=== PATIENT | female | born 1980 | race Caucasian/White ===

== ENCOUNTER → 2017-01-26 | Outpatient (CLI) | payer OTHER ==
--- NOTE | 2017-01-26 10:16 | RADIOLOGY REPORT (SQ) ---
EXAM DESCRIPTION: U/S ABDOMEN COMPLETE W/O DOP COMPLETED DATE/TIME: 01/26/2017 9:38 am REASON FOR STUDY: UPPER ABDOMINAL PAIN R10.10 UPPER ABDOMINAL PAIN, UNSPECIFIED COMPARISON: None. TECHNIQUE: Dynamic and static grayscale images acquired of the abdomen and recorded on PACS. Additio bogdan selected color Doppler and spectral images recorded. LIMITATIONS: None. FINDINGS: PANCREAS: No masses. Visualized pancreatic duct normal caliber. LIVER: 13.8 cm. Normal echotexture. LIVER VASCULATURE: Normal directional flow of the main portal vein and hepatic veins. GALLBLADDER: No stones. Normal wall thickness. No pericholecystic fluid. ULTRASOUND-DETECTED WOODY'S SIGN: Negative. INTRAHEPATIC DUCTS AND COMMON DUCT: Common bile duct is normal at 1.4 mm. There is no intrahepatic d uctal dilatation INFERIOR VENA CAVA: Normal flow. AORTA: No aneurysm. RIGHT KIDNEY: Normal size, 10.8 cm. Normal echogenicity. No solid or suspicious masses. No hyd ronephrosis. No calcifications. LEFT KIDNEY: Normal size, 10.6 cm. Normal echogenicity. No solid or suspicious masses. No hydr onephrosis. No calcifications. SPLEEN: Normal size, 8.4 cm. No masses. PERITONEAL AND PLEURAL SPACES: No ascites or effusions. OTHER: No other significant finding. IMPRESSION: NORMAL ABDOMINAL ULTRASOUND. TECHNICAL DOCUMENTATION: JOB ID: [id number]- All Rights Reserved
== END ==
LOC: RAD 09:05
PROVIDERS: ATTEND Physician Assistant
DX: R10.10 Upper abdominal pain, unspecified (principal)
CPT/HCPCS: 76700

== ENCOUNTER → 2017-05-15 | Outpatient (CLI) | payer OTHER ==
--- NOTE | 2017-05-15 15:28 | RADIOLOGY REPORT (SQ) ---
EXAM DESCRIPTION: NM HIDA SCAN WITH CCK COMPLETED DATE/TIME: 05/15/2017 3:07 pm REASON FOR STUDY: UNSPECIFIED ABDOMINAL PAIN (R10.9) R10.9 UNSPECIFIED ABDOMINAL PAIN COMPARISON: None. RADIONUCLIDE AND DOSE: DOSAGE RADIONUCLIDE: 5 millicuries Tc99m Mebrofenin. DOSAGE CCK: 1.1 micrograms. DOSAGE MORPHINE: Not required. The route of agent administration: Intravenous TECHNIQUE: Serial imaging right upper quadrant up to 60 minutes following injection of radionuclide. CCK injected after gallbladder visualized. LIMITATIONS: None. FINDINGS: LIVER: Normal visualization without areas of photopenia. INTRAHEPATIC BILE DUCTS: Normal size and no delay in visualization. COMMON BILE DUCT: Normal without dilatation. GALLBLADDER: Normal visualization. Calculated ejection fraction of 19%. Normal range is greater th an 35%. PHYSICAL RESPONSE: Patients presenting complaint was reproduced. OTHER: No other significant finding. IMPRESSION: Reduce gallbladder ejection fraction of 19% where 35% or greater is considered normal. Administration of CCK reproduced the patient's symptoms. TECHNICAL DOCUMENTATION: JOB ID: [id number] [employer] All Rights Reserved
== END ==
LOC: RAD 12:07
PROVIDERS: ATTEND Physician Assistant
DX: R10.9 Unspecified abdominal pain (principal)
CPT/HCPCS: 78227; A9537; Q9969; J2805

== ENCOUNTER 2018-04-19 18:03 | Emergency (ER) | payer OTHER ==
[2018-04-19] MEDS ORDERED: LIDOCAINE 1%/EPINEPHRINE INJ 20 ML VIAL INJ ONE (19:49)
[2018-04-19] MEDS ORDERED: DIPH/PERTUSS(ACELL)/TETANUS VAC/PF 0.5 ML SYR (>=10YO) IM ONE (19:51)
--- NOTE | 2018-04-19 20:03 | ER Document Report ---
ED General - General Chief Complaint: Foreign Body Stated Complaint: FISHHOOK IN EYEBROW Time Seen by Provider: 04/19/18 19:08 Notes: Patient is a 37-year-old female who presents with a fishhook to the left eyebrow. Her splint was freshwater fishing and when he was casting had punctured her eyebrow. Her last tetanus shot was 6 years ago. TRAVEL OUTSIDE OF THE [place] IN LAST 30 DAYS: No - Related Data Allergies/Adverse Reactions: No Known Allergies Allergy (Verified 04/09/17 16:00) Past Medical History - General Information source: Patient - Social History Smoking Status: Never Smoker Chew tobacco use (# tins/day): No Frequency of alcohol use: Occasional Drug Abuse: None Family History: Reviewed & Not Pertinent Patient has suicidal ideation: No Patient has homicidal ideation: No - Past Medical History Cardiac Medical History: Denies: Hx Coronary Artery Disease, Hx Heart Attack, Hx Hypertension Pulmonary Medical History: Reports: Hx Bronchitis Denies: Hx Asthma, Hx COPD, Hx Pneumonia Neurological Medical History: Denies: Hx Cerebrovascular Accident, Hx Seizures Renal/ Medical History: Denies: Hx Peritoneal Dialysis Musculoskeletal Medical History: Denies Hx Arthritis Past Surgical History: Denies: Hx Hysterectomy Review of Systems - Review of Systems Notes: Constitutional: Negative for fever. HENT: Positive for pain at left eyebrow, with fishhook and eyebrow Eyes: Negative for visual changes. Cardiovascular: Negative for chest pain. Respiratory: Negative for shortness of breath. Gastrointestinal: Negative for abdominal pain, vomiting or diarrhea. Genitourinary: Negative for dysuria. Musculoskeletal: Negative for back pain. Skin: Negative for rash. Neurological: Negative for headaches, weakness or numbness. 10 point ROS negative except as marked above and in HPI. Physical Exam - Vital signs Vitals: Temp Pulse Resp BP Pulse Ox 98.6 F 69 18 99/67 L 100 04/19/18 18:30 04/19/18 18:30 04/19/18 18:30 04/19/18 18:30 04/19/18 18:30 - Notes Notes: PHYSICAL EXAMINATION: GENERAL: Well-appearing, well-nourished and in no acute distress. HEAD: Atraumatic, normocephalic, fishhook in the left eyebrow. EYES: Pupils equal round and reactive to light, extraocular movements intact, sclera anicteric, conjunctiva are normal. ENT: nares patent, oropharynx clear without exudates. Moist mucous membranes. NECK: Normal range of motion, supple without lymphadenopathy LUNGS: Breath sounds clear to auscultation bilaterally and equal. No wheezes rales or rhonchi. HEART: Regular rate and rhythm without murmurs ABDOMEN: Soft, nontender, normoactive bowel sounds. No guarding, no rebound. No masses appreciated. EXTREMITIES: Normal range of motion, no pitting or edema. No cyanosis. NEUROLOGICAL: No focal neurological deficits. Moves all extremities spontaneously and on command. PSYCH: Normal mood, normal affect. SKIN: Warm, Dry, normal turgor, no rashes or lesions noted. Course - Re-evaluation Re-evalutation: 04/19/182001 Patient has a fishhook to left eyebrow, the hook is not exposed. 04/19/18 21:08 [place] was removed by CARLITO Trammell. Hook was advanced to expose the tip, then the hook was cut with pliers. The hook was then removed. - Vital Signs Vital signs: Temp Pulse Resp BP Pulse Ox 98.6 F 69 18 99/67 L 100 04/19/18 18:30 04/19/18 18:30 04/19/18 18:30 04/19/18 18:30 04/19/18 18:30 Procedures - Incision and Drainage [place] removal of left eyebrow Type: Simple Anesthetic type: 1% Lidocaine w/epi mL's of anesthetic: 2 I&D procedure: Chlorprep applied, Shurclens applied Incision Method: Incision made with needle - Fish hook was advanced to expose the tip, then pliers were used to cut the tip. The hook was then pulled out. Discharge - Discharge Clinical Impression: Foreign body (FB) in soft tissue Condition: Stable Disposition: HOME, SELF-CARE Additional Instructions: You have been seen in the emergency department for a fish hook removal to left eyebrow. You may see at the site of the fishhook removal. Keep the area clean and dry. You may clean the area as needed with soap and water. In addition, you have been prescribed antibiotics. Please finish your antibiotics as prescribed. If you feel the site is getting worse, develop a fever, see some increased redness, or have any concerns that are worrisome to you, please return to the emergency department or visit your primary care provider. Prescriptions: Doxycycline Monohydrate 100 mg PO BID #14 tablet Referrals: JULIANNA PATHAK PA-C [Primary Care Provider] - Follow up as needed
[2018-04-19] MEDS ORDERED: OXYCODONE-ACETAMINOPHEN 5-325 MG TABLET PO ONE (20:17)
[2018-04-19] MEDS ORDERED: PROMETHAZINE HCL 25 MG TABLET PO ONE (20:18)
[2018-04-19] MEDS ORDERED: DOXYCYCLINE HYCLATE 100 MG TABLET PO ONE (21:30)
[2018-04-19 21:47] VITALS: BP 95/65
== END 2018-04-19 21:49 | disposition home or self-care (01) ==
LOC: ER 18:03
DX: S00.251A Superficial foreign body of right eyelid and periocular area, initial encounter (principal); W45.8XXA Other foreign body or object entering through skin, initial encounter; Y93.19 Activity, other involving water and watercraft
CPT/HCPCS: 99283; 90471; 90715; 10120; J3490

== ENCOUNTER → 2018-05-11 | Outpatient (CLI) | payer OTHER | LOC: OD 10:53 | PROVIDERS: ATTEND Nurse Practitioner Family | DX: N91.2 Amenorrhea, unspecified (principal) | CPT/HCPCS: 36415; 84703 ==

== ENCOUNTER → 2018-06-14 | Outpatient (CLI) | payer OTHER ==
--- NOTE | 2018-06-14 09:46 | RADIOLOGY REPORT (SQ) ---
EXAM DESCRIPTION: U/S NON-OB PELVIS TV W/O DOP COMPLETED DATE/TIME: 06/14/2018 9:17 am REASON FOR STUDY: PELVIC PAIN IN FEMALE. (R10.2) R10.2 PELVIC AND PERINEAL PAIN COMPARISON: None. TECHNIQUE: Dynamic and static grayscale images acquired of the pelvis via transvaginal approach and recorded on PACS. Additional selected color Doppler and spectral images recorded. LIMITATIONS: None. FINDINGS: UTERUS: Contour normal. No mass. ENDOMETRIAL STRIPE: No focal or generalized thickening. No masses. There is a small amount of fluid noted within the endometrial canal. CERVIX: Small nabothian cysts are demonstrated. RIGHT OVARY AND DOPPLER: There is a 1.7 x 2.1 x 1.2 cm complex ovarian cyst. Normal intravascular fl ow. LEFT OVARY AND DOPPLER: Normal size. No worrisome masses. Normal arterial vascular flow without evide nce for torsion. FREE FLUID: None noted. OTHER: No other significant finding. MEASUREMENTS: UTERUS: 7.1 x 5.4 x 3.5 cm. ENDOMETRIAL STRIPE: 10 mm. RIGHT OVARY: 3.7 x 3.9 x 1.7 cm. LEFT OVARY: 3.3 x 2.7 x 1.7 cm. IMPRESSION: Small complex right ovarian lesion measured 1.7 x 2.1 x 1.2 cm. No free fluid. No othe r significant findings. TECHNICAL DOCUMENTATION: JOB ID: [id number] [employer]- All Rights Reserved Rev-11/30 Reading location - IP/workstation name: [email or web address]
== END ==
LOC: RAD 08:10
PROVIDERS: ATTEND Physician Assistant
DX: R10.2 Pelvic and perineal pain (principal)
CPT/HCPCS: 76830